=== PATIENT | female | born 1950 | race Caucasian/White ===

== ENCOUNTER 2018-01-30 15:30 | Outpatient (RCR) | payer MEDICARE, OTHER, SELFPAY ==
--- NOTE | 2018-01-03 13:53 | HP.PTEVAL ---
Patient's Visit Information JACKY BELLAMY is a 67 year old F referred to Physical Therapy by RIZWAN FARR with a diagnosis of spondylolisthesis s/p LB surgery. Date of Evaluation: 01/03/18 Physical Therapist: DANTE BlackburnT, OC - Visit Plan Frequency: 3x /Week Duration: 4-6 Weeks Plan: No bending lifting twisting is her precautions. 3x/week for 3-6 weeks to: 1. may need scar massage. 2. NWB LB ROM and quad stretching/hip flexor stretching. 3. core and LEG stregnth progression progressing to machines and I for [employer] with list. 4. Monitor progression of home walking program and walk on uneven surfaces outside in PT. 5. ice as needed. - Subjective Subjective: Had LB surgery, discectomy adn cleaning out. Performed on 12/12/17. This was due to bad B leg burning pain and could hardly walk distances due to pain and had been worsening for 12 years. Now walking much better. Pain is in LB at 3/10 intermittently but light level fairly constantly. Tylenol dulls it. 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 Basic ADLs and walking are OK and no AD needed now. Steps at home 2 and was hard at first but now can do them with rail. Crosses leg s to put shoes and socks on. Sleep is pretty good, wakes up sore in am and improves with some movement. Not employed. Hobbies include flea markets but had to stop due to leg pain. Exercises none and wants to keep it to a minimum. - Pain LBP Pain Intensity (Out of 10): 1 Pain Intensity Range: 0, 7 - Objective LB AROM ext mod limited adn slight discomfort, flexion is hesitant. sB are min limited and no pain. - SLR, - SLUMP. Walking is I, trasnfers are I, steps are reciprocal without rail. reflexes patella and achilles 1/3. sensation LE WNL to gross light touch. Strength LE 4/5 and trunk flexion and ext 3+. 3 incisions in LB with moderate scarf tissue and still some minimal scabbing, no excessive redness heat or swelling. - Balance Scores Functional Gait Assessment Score: 28 % Disability: 6.6700 - Goals Goal 1:: Pain 0-1 /10 at all times Goal Time Frame: 4-6 Weeks Goal 2:: Walk 1/4 mile on grass without increased pain on trail in backyard Goal Time Frame: 4-6 Weeks Goal 3:: Paatient able to walk 1 hour on feet(groceries etc) withotu increased LBP Goal Time Frame: 4-6 Weeks Goal 4:: I in approp LB ROM, stretch and strengthen to minimize future problems. Goal Time Frame: 4-6 Weeks - Rehabilitation Potential Physical Therapy Diagnosis: spondylolisthesis s/p surgery. Rehabilitation Potential: Fair - Anticipated Interventions Patient/Client Instruction: Educate patient on: Condition, Plan of Care, Risk Factors For the Purpose of:: To decrease pain, To increase ROM, To improve nutrient delivery to tissue, To increase tolerance to activity/condition/position Therapeutic Exercise to Include: Strength training, Flexibilty training, Passive ROM, Active ROM, Dynamic Lumbar Stabilization For the Purpose of:: To decrease pain, To increase ROM, To improve muscle performance and motor function, To improve ability of physical actions for home/community/work/leisure Manual Therapy Techniques to Include: Scar massage For the Purpose of:: To improve nutrient delivery to tissue Cryotherapy (ice pack, ice massage): Yes For the Purpose of:: To decrease pain, To decrease swelling/inflammation Thank you for the opportunity to evaluate your patient. For Medicare and Medicare HMO plans, please review the plan of care and approve it. It will need to be FAXED BACK to us at [phone] for Medicare purposes. Please let me know if there are questions or concerns regarding this plan of care. Physician Signature: Date:
--- NOTE | 2018-01-30 16:03 | HP.PTDCSUM_ITS ---
HP - PT D/C Summary It has been my pleasure to treat JACKY BELLAMY under orders from RIZWAN FARR, for the diagnosis of spondylolisthesis s/p LB surgery for a total of 10 visit(s). Discharge Date: 01/30/18 Please see the following information for a summary of their discharge status. - Subjective Subjective: Doing well. Went to [employer] for 4 hours and had a little LBP that day. Sleeping OK. Tylenol sometimes. Activities at home ar enormal, will weed eat next week. - Pain LBP Pain Intensity (Out of 10): 2 - Objective Objective/Function: Strength LE improving functionally. ROM is WFL, flexion still gives a stretch in R LB. Walking is good. - Goals Goal 1:: Pain 0-1 /10 at all times Goal Progress: Progressing Goal 2:: Walk 1/4 mile on grass without increased pain on trail in backyard Goal Progress: Goal Met Goal 3:: Paatient able to walk 1 hour on feet(groceries etc) withotu increased LBP Goal Progress: Goal Met Goal 4:: I in approp LB ROM, stretch and strengthen to minimize future problems. Goal Progress: Goal Met - Plan Plan: D/C patients request. She will continue ex and f/u with surgeon in 10 days. - D/C Information Discharge Comments: Pt will continue exs on own and f/u with doctor in 10 days. If there are questions or concerns regarding this patient's physical therapy, please feel free to call me at [phone]. Thank you for the referral of this patient. Sincerely, Vladimir Booth, DPT, OC
== END 2018-01-30 19:00 | disposition home or self-care (01) ==
LOC: PT 15:30
PROVIDERS: Family Provider Internal Medicine; PCP Internal Medicine
DX: M43.16 Spondylolisthesis, lumbar region (principal)
CPT/HCPCS: 97110; 97162; 97530

== ENCOUNTER 2020-11-19 15:30 | Outpatient (RCR) | payer MEDICARE, OTHER, SELFPAY ==
[2020-11-19] MEDS: COVID-19 VACC, MRNA(PFIZER)/PF 30 MCG/0.3 ML SYRINGE IM (09:58)
[2020-12-10] MEDS: COVID-19 VACC, MRNA(PFIZER)/PF 30 MCG/0.3 ML SYRINGE IM (10:00)
== END 2020-11-19 23:59 ==
LOC: IMMUN 15:30
PROVIDERS: PCP Internal Medicine; Referring Provider Family Medicine; Visit Provider Family Medicine
DX: Z23 Encounter for immunization (principal)
CPT/HCPCS: 0001A; 0002A